=== PATIENT | male | born 1985 | race Hispanic/Latino ===

== ENCOUNTER 2018-06-23 18:29 | Inpatient (IN) | payer OTHER ==
[2018-06-23 19:59] LABS: HEMATOCRIT 47.7 % (42.0-52.0); HEMOGLOBIN 15.4 g/dl (13.5-17.5); MEAN CORPUSCULAR HEMOGLOBIN 29.9 pg (27.0-33.0); MEAN CORPUSCULAR HGB CONC 32.3 g/dl (32.0-36.5); MEAN CORPUSCULAR VOLUME 92.6 fl (80.0-96.0); PLATELET COUNT, AUTOMATED 240 10^3/uL (150-450); RED BLOOD COUNT 5.15 10^6/uL (4.30-6.10); RED CELL DISTRIBUTION WIDTH 12.1 % (11.5-14.5); WHITE BLOOD COUNT 10.5 10^3/uL (4.0-10.0)
[2018-06-23 20:20] LABS: ALKALINE PHOSPHATASE 96 U/L (45-117); ALT/SGPT 25 U/L (12-78); ANION GAP 6 MEQ/L (8-16); AST/SGOT 13 U/L (7-37); BLOOD UREA NITROGEN 16 MG/DL (7-18); CALCIUM LEVEL 8.3 MG/DL (8.5-10.1); CARBON DIOXIDE LEVEL 29 MEQ/L (21-32); CHLORIDE LEVEL 105 MEQ/L (98-107); CREATININE FOR GFR 1.13 MG/DL (0.70-1.30); GLOMERULAR FILTRATION RATE > 60.0 (>60); GLUCOSE, FASTING 96 MG/DL (70-100); POTASSIUM SERUM 4.1 MEQ/L (3.5-5.1); SODIUM LEVEL 140 MEQ/L (136-145)
[2018-06-23 20:21] LABS: ACETAMINOPHEN LEVEL < 2.0 UG/ML (10.0-30.0); ALBUMIN 3.9 GM/DL (3.2-5.2); ALBUMIN/GLOBULIN RATIO 0.98 (1.00-1.93); BILIRUBIN,DIRECT 0.1 MG/DL (0.0-0.2); BILIRUBIN,TOTAL 0.4 MG/DL (0.2-1.0); ETHYL ALCOHOL (ETHANOL) 0.004 % (0.000-0.010); SALICYLATE LEVEL < 1.7 MG/DL (5.0-30.0); TOTAL PROTEIN 7.9 GM/DL (6.4-8.2)
[2018-06-23 20:26] LABS: AMPHETAMINES LEVEL URINE NEGATIVE (NEGATIVE); BARBITURATES URINE NEGATIVE (NEGATIVE); BENZODIAZEPINES URINE NEGATIVE (NEGATIVE); CANNABINOIDS URINE NEGATIVE (NEGATIVE); COCAINE METABOLITE URINE NEGATIVE (NEGATIVE); METHADONE URINE NEGATIVE (NEGATIVE); OPIATES URINE NEGATIVE (NEGATIVE); PHENCYCLIDINE URINE NEGATIVE (NEGATIVE)
[2018-06-23] MEDS ORDERED: traZODone 50 MG TAB PO (22:15)
[2018-06-23] MEDS ORDERED: ACETAMINOPHEN TAB 650MG DOSE (2X325MG) PO (22:15)
[2018-06-23] MEDS ORDERED: MOM 30ML SUSPENSION UDC PO (22:15)
[2018-06-23] MEDS ORDERED: MAALOX 30 ML SUSP *UDC PO (22:15)
[2018-06-24] MEDS: SERTRALINE HCL 50 MG TAB PO (15:21)
[2018-06-25] MEDS: SERTRALINE HCL 50 MG TAB PO (08:59)
[2018-06-26] MEDS: SERTRALINE HCL 50 MG TAB PO (08:24)
[2018-06-27] MEDS: SERTRALINE HCL 50 MG TAB PO (08:24)
[2018-06-28] MEDS: SERTRALINE HCL 50 MG TAB PO (09:11)
[2018-06-29] MEDS: SERTRALINE HCL 50 MG TAB PO (09:40)
== END 2018-06-29 12:30 | disposition home or self-care (01) | DRG 881 ==
LOC: M PSY 06-24 02:14 → M ED 18:29 → M ED INP 22:07
DX: F32.9 Major depressive disorder, single episode, unspecified (principal); F41.9 Anxiety disorder, unspecified

== ENCOUNTER 2018-07-05 12:38 | Emergency (ER) | payer OTHER ==
[2018-07-05] MEDS: NS 1,000 ML IV (13:30)
[2018-07-05] MEDS: ASPIRIN 81 MG CHEW TABLET PO (13:30)
[2018-07-05 14:09] LABS: BASO # 0.1 10^3/uL (0.0-0.2); BASO % 0.6 % (0.0-1.0); EOS # 0.3 10^3/uL (0.0-0.50); EOS % 3.4 % (0.0-3.0); HEMATOCRIT 45.3 % (42.0-52.0); HEMOGLOBIN 14.6 g/dl (13.5-17.5); IMMATURE GRANULOCYTE % 0.2 % (0-3.0); LYMPH % 24.7 % (24.0-44.0); MEAN CORPUSCULAR HEMOGLOBIN 29.9 pg (27.0-33.0); MEAN CORPUSCULAR HGB CONC 32.2 g/dl (32.0-36.5); MEAN CORPUSCULAR VOLUME 92.6 fl (80.0-96.0); MONO # 0.5 10^3/uL (0.0-0.8); MONO % 6.1 % (0.0-5.0); NEUTROPHILS # 5.3 10^3/uL (1.8-7.7); PLATELET COUNT, AUTOMATED 237 10^3/uL (150-450); RED BLOOD COUNT 4.89 10^6/uL (4.30-6.10); RED CELL DISTRIBUTION WIDTH 12.4 % (11.5-14.5); WHITE BLOOD COUNT 8.2 10^3/uL (4.0-10.0)
[2018-07-05 14:20] LABS: INR 0.95; PROTHROMBIN TIME 12.8 SECONDS (12.1-14.4)
[2018-07-05 14:26] LABS: AMPHETAMINES LEVEL URINE NEGATIVE (NEGATIVE); BARBITURATES URINE NEGATIVE (NEGATIVE); BENZODIAZEPINES URINE NEGATIVE (NEGATIVE); CANNABINOIDS URINE NEGATIVE (NEGATIVE); COCAINE METABOLITE URINE NEGATIVE (NEGATIVE); METHADONE URINE NEGATIVE (NEGATIVE); OPIATES URINE NEGATIVE (NEGATIVE); PHENCYCLIDINE URINE NEGATIVE (NEGATIVE)
[2018-07-05 14:56] LABS: ALBUMIN 3.9 GM/DL (3.2-5.2); ALBUMIN/GLOBULIN RATIO 1.18 (1.00-1.93); ALKALINE PHOSPHATASE 80 U/L (45-117); ALT/SGPT 21 U/L (12-78); ANION GAP 5 MEQ/L (8-16); AST/SGOT 13 U/L (7-37); BILIRUBIN,DIRECT 0.1 MG/DL (0.0-0.2); BILIRUBIN,TOTAL 0.3 MG/DL (0.2-1.0); BLOOD UREA NITROGEN 16 MG/DL (7-18); CALCIUM LEVEL 8.8 MG/DL (8.5-10.1); CARBON DIOXIDE LEVEL 28 MEQ/L (21-32); CHLORIDE LEVEL 105 MEQ/L (98-107); CPK CREATINE PHOSPHOKINASE 102 U/L (39-308); CREATININE FOR GFR 0.94 MG/DL (0.70-1.30); FREE THYROXINE INDEX 2.4 % (1.4-3.8); GLOMERULAR FILTRATION RATE > 60.0 (>60); GLUCOSE, FASTING 93 MG/DL (70-100); MAGNESIUM LEVEL 2.2 MG/DL (1.8-2.4); MB/CK RELATIVE INDEX 1.08 (< OR =4); SODIUM LEVEL 138 MEQ/L (136-145); T UPTAKE 33 % (33-40); THYROXINE (T4) 7.3 UG/DL (4.5-12.0); TOTAL PROTEIN 7.2 GM/DL (6.4-8.2); TROPONIN I < 0.02 NG/ML (< 0.10)
== END 2018-07-05 15:29 | disposition home or self-care (01) ==
LOC: M ED 12:38
DX: R00.2 Palpitations (principal); R00.1 Bradycardia, unspecified; Z82.49 Family history of ischemic heart disease and other diseases of the circulatory system
CPT/HCPCS: 71046

== ENCOUNTER 2018-07-07 10:34 | Inpatient (IN) | payer OTHER ==
[2018-07-07 11:34] LABS: HEMATOCRIT 45.7 % (42.0-52.0); HEMOGLOBIN 14.9 g/dl (13.5-17.5); MEAN CORPUSCULAR HEMOGLOBIN 29.7 pg (27.0-33.0); MEAN CORPUSCULAR HGB CONC 32.6 g/dl (32.0-36.5); PLATELET COUNT, AUTOMATED 235 10^3/uL (150-450); RED BLOOD COUNT 5.02 10^6/uL (4.30-6.10); RED CELL DISTRIBUTION WIDTH 12.5 % (11.5-14.5)
[2018-07-07 11:58] LABS: ACETAMINOPHEN LEVEL < 2.0 UG/ML (10.0-30.0); ALBUMIN 3.7 GM/DL (3.2-5.2); ALBUMIN/GLOBULIN RATIO 0.97 (1.00-1.93); ALKALINE PHOSPHATASE 90 U/L (45-117); ALT/SGPT 22 U/L (12-78); ANION GAP 7 MEQ/L (8-16); AST/SGOT 13 U/L (7-37); BILIRUBIN,DIRECT < 0.1 MG/DL (0.0-0.2); BILIRUBIN,TOTAL 0.4 MG/DL (0.2-1.0); BLOOD UREA NITROGEN 19 MG/DL (7-18); CALCIUM LEVEL 8.8 MG/DL (8.5-10.1); CARBON DIOXIDE LEVEL 29 MEQ/L (21-32); CHLORIDE LEVEL 105 MEQ/L (98-107); CREATININE FOR GFR 1.15 MG/DL (0.70-1.30); ETHYL ALCOHOL (ETHANOL) < 0.003 % (0.000-0.010); GLOMERULAR FILTRATION RATE > 60.0 (>60); GLUCOSE, FASTING 63 MG/DL (70-100); SALICYLATE LEVEL < 1.7 MG/DL (5.0-30.0); SODIUM LEVEL 141 MEQ/L (136-145); TOTAL PROTEIN 7.5 GM/DL (6.4-8.2)
[2018-07-07 14:34] LABS: AMPHETAMINES LEVEL URINE NEGATIVE (NEGATIVE); BARBITURATES URINE NEGATIVE (NEGATIVE); BENZODIAZEPINES URINE NEGATIVE (NEGATIVE); CANNABINOIDS URINE NEGATIVE (NEGATIVE); COCAINE METABOLITE URINE NEGATIVE (NEGATIVE); METHADONE URINE NEGATIVE (NEGATIVE); OPIATES URINE NEGATIVE (NEGATIVE); PHENCYCLIDINE URINE NEGATIVE (NEGATIVE)
[2018-07-07] MEDS ORDERED: MOM 30ML SUSPENSION UDC PO (15:00)
[2018-07-07] MEDS ORDERED: ACETAMINOPHEN TAB 650MG DOSE (2X325MG) PO (15:00)
[2018-07-07] MEDS ORDERED: MAALOX 30 ML SUSP *UDC PO (15:00)
[2018-07-07] MEDS ORDERED: hydrOXYzine 50 MG TAB PO (15:00)
[2018-07-08] MEDS: SERTRALINE HCL 50 MG TAB PO (09:47)
[2018-07-09] MEDS: ESCITALOPRAM OXALATE 5MG TABLET (LEXAPRO) PO (08:27)
[2018-07-10] MEDS: ESCITALOPRAM OXALATE 10 MG TAB (LEXAPRO) PO (08:58)
[2018-07-11] MEDS: ESCITALOPRAM OXALATE 5MG TABLET (LEXAPRO) PO (09:10)
[2018-07-12] MEDS: ESCITALOPRAM OXALATE 5MG TABLET (LEXAPRO) PO (09:41)
[2018-07-12] MEDS: traZODone 50 MG TAB PO (21:21)
[2018-07-13] MEDS: ESCITALOPRAM OXALATE 10 MG TAB (LEXAPRO) PO (09:00)
[2018-07-13] MEDS: traZODone 50 MG TAB PO (21:42)
[2018-07-14] MEDS: ESCITALOPRAM OXALATE 10 MG TAB (LEXAPRO) PO (08:31)
[2018-07-15] MEDS: ESCITALOPRAM OXALATE 10 MG TAB (LEXAPRO) PO (09:23)
[2018-07-15] MEDS: traZODone 50 MG TAB PO (22:04)
== END 2018-07-16 07:11 | DRG 881 ==
LOC: M PSY 07-12 18:41 → M ED 10:34 → M ED INP 14:46 → M PSY 15:40
PROVIDERS: Psychiatry & Neurology Psychiatry
DX: F32.9 Major depressive disorder, single episode, unspecified (principal); F41.9 Anxiety disorder, unspecified; Z79.899 Other long term (current) drug therapy

== ENCOUNTER 2018-11-02 10:21 | Inpatient (IN) | payer OTHER ==
[~2018-11-02] VITALS: Ht 172.7 cm; Wt 108.2 kg
[~2018-11-02 10:21] MED LIST: ESCI10TA2 PO; HYDRO50TAB PO; SERT50TA PO; TRAZO50TA PO; ZOLO50TA PO
[2018-11-02] MEDS ORDERED: MIRT-15 PO (10:34)
[2018-11-02] MEDS ORDERED: ABIL1TAB12 PO (10:34)
[2018-11-02 10:55] LABS: HEMATOCRIT 46.6 % (42.0-52.0); HEMOGLOBIN 15.2 g/dl (13.5-17.5); MEAN CORPUSCULAR HEMOGLOBIN 30.2 pg (27.0-33.0); MEAN CORPUSCULAR HGB CONC 32.6 g/dl (32.0-36.5); MEAN CORPUSCULAR VOLUME 92.5 fl (80.0-96.0); PLATELET COUNT, AUTOMATED 225 10^3/uL (150-450); RED BLOOD COUNT 5.04 10^6/uL (4.30-6.10); WHITE BLOOD COUNT 6.8 10^3/uL (4.0-10.0)
[2018-11-02 11:05] LABS: AMPHETAMINES LEVEL URINE NEGATIVE (NEGATIVE); BARBITURATES URINE NEGATIVE (NEGATIVE); BENZODIAZEPINES URINE NEGATIVE (NEGATIVE); CANNABINOIDS URINE NEGATIVE (NEGATIVE); COCAINE METABOLITE URINE NEGATIVE (NEGATIVE); METHADONE URINE NEGATIVE (NEGATIVE); OPIATES URINE NEGATIVE (NEGATIVE); PHENCYCLIDINE URINE NEGATIVE (NEGATIVE)
[2018-11-02 11:33] LABS: ALBUMIN 3.8 GM/DL (3.2-5.2); ALT/SGPT 20 U/L (12-78); BILIRUBIN,DIRECT 0.1 MG/DL (0.0-0.2); BILIRUBIN,TOTAL 0.4 MG/DL (0.2-1.0); BLOOD UREA NITROGEN 14 MG/DL (7-18); CALCIUM LEVEL 8.7 MG/DL (8.5-10.1); CARBON DIOXIDE LEVEL 30 MEQ/L (21-32); CHLORIDE LEVEL 105 MEQ/L (98-107); CREATININE FOR GFR 1.12 MG/DL (0.70-1.30); GLOMERULAR FILTRATION RATE > 60.0 (>60); GLUCOSE, FASTING 51 MG/DL (70-100); POTASSIUM SERUM 4.1 MEQ/L (3.5-5.1); SALICYLATE LEVEL < 1.7 MG/DL (5.0-30.0); SODIUM LEVEL 140 MEQ/L (136-145); TOTAL PROTEIN 7.4 GM/DL (6.4-8.2)
[2018-11-02 11:34] LABS: ACETAMINOPHEN LEVEL < 2.0 UG/ML (10.0-30.0); ETHYL ALCOHOL (ETHANOL) < 0.003 % (0.000-0.010)
[2018-11-02] MEDS ORDERED: traZODone 50 MG TAB PO PRN (12:30)
[2018-11-02] MEDS ORDERED: MOM 30ML SUSPENSION UDC PO PRN (12:30)
[2018-11-02] MEDS ORDERED: ACETAMINOPHEN TAB 650MG DOSE (2X325MG) PO PRN (12:30)
[2018-11-02] MEDS ORDERED: MAALOX 30 ML SUSP *UDC PO PRN (12:30)
[2018-11-02] MEDS ORDERED: MIRT15TA3 PO (13:02)
[2018-11-02] MEDS ORDERED: MELA5TAB17 PO (13:02)
[2018-11-02] MEDS ORDERED: ARIP1TAB PO (13:42)
[2018-11-02] MEDS ORDERED: MELA3TAB PO (13:42)
[2018-11-02 13:56] VITALS: BP 119/71
--- NOTE | 2018-11-02 14:23 | HPEPDOC ---
[facility] Medical History & Physical Date of Admission Nov 02, 2018 History and Physical PCP: [facility] ATTENDING: Dr. Isis Quinn HPI: 33yoM admitted to [facility] for depressive disorder, being medically examined today. No acute medical complaints today. Denies any fevers, chills, weakness, fatigue, LYN, CP, SOB, cough, palpitations, abdominal pain, N/V/D or changes in bowel or bladder habits. PMHx: anxiety depression insomnia H/O SI/SA x 3 chronic LBP PSHX: denies SOCHX: Resides in: 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 ROS: As noted in HPI, otherwise 11pt ROS of systems reviewed and unremarkable. PE: GEN: 33yoM, appears stated age. Well-nourished, well developed. No acute distress. Alert and oriented x 3. Pleasant, interactive. HEENT: Normocephalic, atraumatic. Pupils are equal, round, and reactive to light. Extraocular movements are intact. No nystagmus appreciated. Sclera are nonicteric. Conjunctiva without injection. Nose midline. Nasal turbinates without bogginess. EACs both patent BL. TMs both visualized and casillas with good cone of light, no bulging or erythema. No facial asymmetry. Moist mucous membranes. Dentition fair. Pharynx pink and moist, no cobblestoning. Neck suppl e, trachea midline. No lymphadenopathy or thyromegaly appreciated. CHEST: Regular rate and rhythm, +S1, +S2 LUNGS: Clear to auscultation bilaterally. No wheezes, rales, or rhonchi. Breathing appears symmetric and easy. Patient is speaking in full sentences. No accessory muscle use. ABD: Round, soft, non-tender, non-distended. +Bowel sounds throughout. No rebound or guarding. No costovertebral angle tenderness. EXT: Pulses 2+ bilaterally dorsalis pedis and radial. No lower extremity edema appreciated. SKIN: [place], dry, warm. Capillary refill <2sec. No rashes. NEURO: Alert and oriented x 3. Cranial nerves III-XII are intact. No focal deficits appreciated. EKG: pending A&P: 33yoM admitted to [facility] for depressive disorder 1. Psych. Plan per Psychiatry. Obtain baseline EKG to assure the safety of psychiatric medications as they can prolong the QT interval. 2. Chronic LBP. Pt states has been controlled. Continue Tylenol 650 mg Q6 hr prn. 3. Follow up with PCP on discharge. 4. Staff member Ed present throughout exam. Vital Signs Vital Signs Date Time Temp Pulse Resp B/P (MAP) Pulse Ox O2 Delivery O2 Flow Rate FiO2 11/02/18 13:34 98.0 56 18 119/71 (87) 98 Laboratory Data Labs 24H Laboratory Tests 2 11/02/18 10:30: Nucleated Red Blood Cells % (auto) 0.0, Anion Gap 5L, Glomerular Filtration Rate > 60.0, Calcium Level 8.7, Aspartate Amino Transf (AST/SGOT) 11, Alanine Amino transferase (ALT/SGPT) 20, Alkaline Phosphatase 78, Total Bilirubin 0.4, Direct Bilirubin 0.1, Total Protein 7.4, Albumin 3.8, Albumin/Globulin Ratio 1.06, Thyroid Stimulating Hormone (TSH) 1.340, Salicylates Level < 1.7L, Urine Amphetamines Screen NEGATIVE, Urine Benzodiazepines Screen NEGATIVE, Urine Opiates Screen NEGATIVE, Urine Methadone Screen NEGATIVE, Acetaminophen Level < 2.0L, Urine Barbiturates Screen NEGATIVE, Urine Phencyclidine Screen NEGATIVE, Urine Cocaine Metabolite Screen NEGATIVE, Urine Cannabinoids Screen NEGATIVE, Ethyl Alcohol Level < 0.003 CBC/BMP Laboratory Tests 11/02/18 10:30 Red Blood Count 5.04, Mean Corpuscular Volume 92.5, Mean Corpuscular Hemoglobin 30.2, Mean Corpuscular Hemoglobin Concent 32.6, Red Cell Distribution Width 12.3 Home Medications Scheduled Aripiprazole (Aripiprazole) 10 Mg Tab, 10 MG PO QHS Melatonin (Melatonin) 3 Mg Tab, 3 MG PO QHS Mirtazapine (Mirtazapine) 15 Mg Tab, 15 MG PO QHS Allergies Coded Allergies: No Known Allergies (Unverified , 11/02/18) Halle Mohan Nov 02, 2018 14:23
[2018-11-02 18:06] VITALS: BP 119/55
[2018-11-03 06:39] VITALS: BP 112/59
--- NOTE | 2018-11-03 13:30 | MHHPEPDOC ---
[facility] History & Physical History and Physical DATE OF ADMISSION: Nov 02, 2018 at 12:28 LEGAL STATUS AT ADMISSION: 9.39 CHIEF COMPLAINT: SI with thoughts of driving car off bridge into [place] or jumping off bridge into river. HISTORY: according to ED report: "Pt. reports he has been feeling overwhelmed l ately, is being med-boarded out of due to MH issues. He reports that he has been having negative thoughts for several days and those thoughts turned to SI this morning, reporting having thoughts of killing himself by [place] or jumpng off bridge [place] the river. He states he went to scheduled appt at today and told therapist of . Pt. states he has no hope in the future. He does state he is , has a good relationship with his who is currently in [place]( has visited fruequently). He states he is also from [place] and will return there after d/c. He reports three past suicide attempts/gestures. He denies MH history prior to joining the ." PSYCHIATRIC REVIEW OF SYSTEMS: Affective: suicidal thoughts, hopelessness, depressed mood, anhedonia, Anxiety: high anxiety levels Trauma: Psychosis: he denies thought delusions, denies auditory, visual, tactile/somatic hallucinations Personality: Past Psychiatric History Previous Psychiatric Diagnosis: Major Depressive Disorder and anxiety disorder. panic attacks Previous Psychiatric Admissions: he has been admitted several times at [facility] for anxiety, depression, panic attacks Suicide Attempts: He says that last year in May-June, he attempted before to commit suicide by CO2 intoxication (ran car in closed garage) but stopped himself by looking a picture of his . He was sent to [facility], about 29 days later, once he had a second attempt, by cutting his wrists and the third one was when he was in [place], [place], he was banging his head against the leon Psychiatric Follow-up: none yet, will have [facility] Psychiatric medications: Abilify, he has taken Cogentin but it was recently discontinued, melatonin and a sleep medication Past Medical History Medical Problems: Lower back pain and pain in his feet, since he has been in the [employer] this has worsened because he has to stand up for long periods of time, he had nose bleeding before (last time, yesterday). Overweight. Head Injury: Denies Seizures: Denies Hospitalizations: Yes at [facility] and at [facility] in [place] Surgeries: No Family Medical/Psychiatric HX Medical Problems: He says his brother told him that he is ill, he doesn't know for sure if he had Crohn's disease. Psychiatric Disorders: Denies Addiction: Denies Suicide Attemps/Completions: Denies Addiction History denies Social History Childhood: born and raised in [place], good childhood, he has 1 brother who lives in [place], his parents live in [place]. 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 Social Support: Legal: denies Marital: , no kids Mental Status Examination Mental Status Examination General Appearance: well groomed, appears stated age, hospital scrubs/clothing, overweight Build: average Demeanor: pleasant, cooperative Eye Contact: good Activity: anxious Behavior: cooperative Speech: clear, pressured, normal volume, reg/rate,rhythm,volume Mood: depressed, anxious Mood "I feel better today but yesterday I felt overwhelmed and that was what triggered the suicidal thoughts" Affect: appropriate, full, reactive Thought Process: logical/linear, depressed, anxious, intact Thought Content (Delusions): none reported, denies SI, HI, AVH Thought Content (Other): none reported, appropriate Thought Content (Aggressive): none reported Perception (Hallucinations): none reported Perception (Other): none reported Cognition (Impairment of): none reported Cognition(Intelligence Est.): average Oriented: Awake, Alert, Oriented times three Insight: poor Judgment: Poor Psychosis: Denies Diagnoses Depression Unspecified Anxiety D/O unspecified Assement/Plan Assessment Initial Treatment Plan 1. Patient was admitted on a 9.39 status. 2. Complete history was obtained. 3. With patients permission, family will be contacted and database will be expanded. 4. Patients medication regimen will be reviewed and changed accordingly. 5. Patient will be provided with protected environment. 6. Patient will be treated with individual, group, and milieu therapies. 7. Patient will receive supportive psych-education. 8. Discharge planning will commence immediately. 9. Outpatient follow-up treatment will be strongly recommended. 10. The initial treatment plan will focus initially on: * Depression. * Risk for suicide. * Substance abuse. 11. zoloft 50mg daily for mood, trazodone 50mg qhs prn insomnia ESTIMATED LENGTH OF STAY: 5-7 DAYS. TIME SPENT COUNSELING AND COORDINATING INITIAL CARE: 60 minutes. Vital Signs Vital Signs Vital Signs Vital Signs Date Time Temp Pulse Resp B/P (MAP) Pulse Ox O2 Delivery O2 Flow Rate FiO2 11/03/18 06:39 98.2 57 14 112/59 (76) 11/02/18 13:56 98 Medications Scheduled Aripiprazole (Aripiprazole) 10 Mg Tab, 10 MG PO QHS, (Reported) Melatonin (Melatonin) 3 Mg Tab, 3 MG PO QHS, (Reported) Mirtazapine (Mirtazapine) 15 Mg Tab, 15 MG PO QHS, (Reported) Allergies Coded Allergies: No Known Allergies (Unverified , 11/02/18) BEVERLY CABALLERO MD Nov 03, 2018 12:02
[2018-11-03 18:38] VITALS: BP 117/64
[2018-11-03] MEDS: ARIPiprazole 10 MG TAB PO SCH (22:05)
[2018-11-03] MEDS: RAMELTEON 8 MG TAB (ROZEREM) PO SCH (22:05)
[2018-11-03] MEDS: MIRTAZAPINE 15 MG TAB PO SCH (22:05)
--- NOTE | 2018-11-03 22:07 | ECGEPIP ---
Stationary ECG Study [facility] Test Date: 2018-11-03 Pat Name: CHARLETTE REYNOLDS Department: Room: [place] [address] Gender: M Coater Helper: YOUNG : 1985 Requested By: Halle Mohan Order Number: [id number] Reading MD: Milan Blackmon Measurements Intervals [place] Rate: 49 P: 33 ID: [id number] QRS: 85 QRSD: 108 T: 38 QT: 422 QTc: 382 Interpretive Statements SINUS BRADYCARDIA Otherwise normal Electronically Signed On 11-03-2018 22:07:24 EST by Milan Blackmon
[2018-11-04 06:21] VITALS: BP 105/52
--- NOTE | 2018-11-04 09:35 | MHIPNPDOC ---
[facility] Progress Note Progress Note DATE OF SERVICE: 11/04/18 HISTORY: Per Dr. Harrington: "According to ED report: "Pt. reports he has been feeling overwhelmed lately, is being med-boarded out of due to MH issues. He reports that he has been having negative thoughts for several days and those thoughts turned to SI this morning, reporting having thoughts of killing himself [place] or jumping off bridge [place] the river. He states he went to scheduled appt at today and told therapist of SI. Pt. states he has no hope in the future. He does state he is , has a good relationship with his who is currently in [place]( has visited frequently). He states he is also from [place] and will return there after d/c. He reports three past suicide attempts/gestures. He denies MH history prior to joining the ." VITAL SIGNS: See below. NEW TEST RESULTS: See below. CURRENT MEDICATIONS: See below. MENTAL STATUS EXAMINATION: General Appearance: well groomed, appears stated age, hospital scrubs/clothing, overweight Build: average Demeanor: pleasant, cooperative Eye Contact: good Activity: less anxious Behavior: cooperative Speech: clear, pressured, normal volume, reg/rate,rhythm,volume Mood: less depressed, less anxious Mood "ok" Affect: appropriate, full, reactive Thought Process: logical/linear, depressed, anxious, intact Thought Content (Delusions): none reported, denies SI, HI, AVH Thought Content (Other): none reported, appropriate Thought Content (Aggressive): none reported Perception (Hallucinations): none reported Perception (Other): none reported Cognition (Impairment of): none reported Cognition(Intelligence Est.): average Oriented: Awake, Alert, Oriented times three Insight: poor Judgment: Poor Psychosis: Denies DIAGNOSES: Depression Unspecified Anxiety D/O unspecified ASSESSMENT:Pt seen and states that his mood is better. States he slept well last night. Feels he is tolerating his medications and they're beneficial. States abilify is especially beneficial from him. States he's looking forward to going home soon due to feeling better. He is attending groups and finding them helpful. He denies SI/HI, hallucinations, delusions. Pt feels safe here. MANAGEMENT PLAN: per dr. Harrington. Medications: remeron 15mg qhs trazodone 50mg qhs prn insomnia Abilify 10mg qhs TIME SPENT: 30 minutes. Vital Signs Vital Signs Date Time Temp Pulse Resp B/P (MAP) Pulse Ox O2 Delivery O2 Flow Rate FiO2 11/04/18 06:21 97.6 55 18 105/52 (69) 11/02/18 13:56 98 Current Medications Current Medications Acetaminophen (Tylenol Tab) 650 mg Q6HP PRN PO HEADACHE or DISCOMFORT; Start 11/02/18 at 12:30 Al Hydrox/Mg Hydrox/Simethicone (Mylanta) 30 ml Q4HP PRN PO HEARTBURN/INDIGESTION; Start 11/02/18 at 12:30 Aripiprazole (AbiLIFY) 10 mg QHS PO Last administered on 11/03/18at 22:05; Start 11/03/18 at 21:00 Home Med (Med Rec Complete!) ASDIRECTED XX ; Start 11/02/18 at 13:45; Stop 11/02/18 at 13:47; Status DC Magnesium Hydroxide (Milk Of Magnesia) 30 ml DAILYPRN PRN PO CONSTIPATION; Start 11/02/18 at 12:30 Mirtazapine (Remeron) 15 mg QHS PO Last administered on 11/03/18at 22:05; Start 11/03/18 at 21:00 Ramelteon (Rozerem) 4 mg QHS PO Last administered on 11/03/18at 22:05; Start 11/03/18 at 21:00 Trazodone HCl (Desyrel) 50 mg QHSP PRN PO INSOMNIA; Start 11/02/18 at 12:30 Allergies Coded Allergies: No Known Allergies (Unverified , 11/02/18) AUNDREA JAMESON DO Nov 04, 2018 9:35 am
[2018-11-04 18:00] VITALS: BP 131/62
[2018-11-04] MEDS: ARIPiprazole 10 MG TAB PO SCH (21:00)
[2018-11-04] MEDS: RAMELTEON 8 MG TAB (ROZEREM) PO SCH (22:45)
[2018-11-04] MEDS: MIRTAZAPINE 15 MG TAB PO SCH (22:45)
[2018-11-05 06:01] VITALS: BP 105/53
[2018-11-05 18:00] VITALS: BP 131/65
[2018-11-05] MEDS: MIRTAZAPINE 15 MG TAB PO SCH (22:45)
[2018-11-05] MEDS: RAMELTEON 8 MG TAB (ROZEREM) PO SCH (22:46)
[2018-11-05] MEDS: ARIPiprazole 10 MG TAB PO SCH (22:46)
[2018-11-06 06:18] VITALS: BP 93/47
--- NOTE | 2018-11-06 17:46 | MHIPNPDOC ---
[facility] Progress Note Progress Note DATE OF SERVICE: 11/05/18 HISTORY: CHIEF COMPLAINT: SI with thoughts of driving car off bridge into [place] or jumping off bridge into river. HISTORY: according to ED report: "Pt. reports he has been feeling overwhelmed lately, is being med-boarded out of due to MH issues. He reports that he has been having negative thoughts for several days and those thoughts turned to SI this morning, reporting having thoughts of killing himself by [place] or jumpng off bridge into the river. He states he went to scheduled appt at today and told therapist of SI. Pt. states he has no hope in the future. He does state he is , has a good relationship with his who is currently in [place]( has visited fruequently). He states he is also from [place] and will return there after d/c. He reports three past suicide attempts/gestures. He denies MH history prior to joining the ." VITAL SIGNS: See below. NEW TEST RESULTS: See below CURRENT MEDICATIONS: See below. MENTAL STATUS EXAMINATION: Patient is a 33-year old male, who is alert, cooperative, dressed in hospital clothes. Speech: Is normal in rate, tone and volume. Language skills are good. Thought processes including: intact, linear and coherent. Thought content: focused on being discharged, he is goal orientated, he wants it out of the . Denies SI/HI, thought delusions Description of abnormal or psychotic thoughts: Denies AV hallucinations, having suicidal/homicidal thoughts. Denies AV hallucinations Judgment: Improving Insight: Improving Orientation: x 3 Recent and remote memory: intact Attention span and concentration: good. Language: normal. Fund of knowledge: average. Mood: brighter, euthymic. Affect: congruent with mood. DIAGNOSES: 1. Other specified depressive disorder 2. SHANNAN. 3. Adjustment disorder with anxious/depressed mood. ASSESSMENT: Patient is showing improvement, he says that he is not suicidal, has felt safe and calm since he has been in here. he says his main stressor is being in the [employer] and although they have been helpful and they have offered their support, all what he wants is out of there and go back to [place]. MANAGEMENT PLAN: will continue with current treatment TIME SPENT: 30 minutes. Vital Signs Vital Signs Date Time Temp Pulse Resp B/P (MAP) Pulse Ox O2 Delivery O2 Flow Rate FiO2 11/06/18 06:18 96.9 50 14 93/47 (62) 11/02/18 13:56 98 Current Medications Current Medications Acetaminophen (Tylenol Tab) 650 mg Q6HP PRN PO HEADACHE or DISCOMFORT; Start 11/02/18 at 12:30 Al Hydrox/Mg Hydrox/Simethicone (Mylanta) 30 ml Q4HP PRN PO HEARTBURN/INDIGESTION; Start 11/02/18 at 12:30 Aripiprazole (AbiLIFY) 10 mg QHS PO Last administered on 11/05/18at 22:46; Start 11/03/18 at 21:00 Home Med (Med Rec Complete!) ASDIRECTED XX ; Start 11/02/18 at 13:45; Stop 11/02/18 at 13:47; Status DC Magnesium Hydroxide (Milk Of Magnesia) 30 ml DAILYPRN PRN PO CONSTIPATION; Start 11/02/18 at 12:30 Mirtazapine (Remeron) 15 mg QHS PO Last administered on 11/05/18at 22:45; Start 11/03/18 at 21:00 Ramelteon (Rozerem) 4 mg QHS PO Last administered on 11/05/18at 22:46; Start 11/03/18 at 21:00 Trazodone HCl (Desyrel) 50 mg QHSP PRN PO INSOMNIA; Start 11/02/18 at 12:30 Allergies Coded Allergies: No Known Allergies (Unverified , 11/02/18) BEVERLY CABALLERO MD Nov 06, 2018 17:44
--- NOTE | 2018-11-06 17:48 | MHIPNPDOC ---
[facility] Progress Note Progress Note DATE OF SERVICE: 11/06/18 HISTORY: CHIEF COMPLAINT: SI with thoughts of driving car off bridge into [place] or jumping off bridge into river. HISTORY: according to ED report: "Pt. reports he has been feeling overwhelmed lately, is being med-boarded out of due to MH issues. He reports that he has been having negative thoughts for several days and those thoughts turned to SI this morning, reporting having thoughts of killing himself by [place] or jumpng off bridge into the river. He states he went to scheduled appt at today and told therapist of SI. Pt. states he has no hope in the future. He does state he is , has a good relationship with his who is currently in [place]( has visited fruequently). He states he is also from [place] and will return there after d/c. He reports three past suicide attempts/gestures. He denies MH history prior to joining the ." VITAL SIGNS: See below. NEW TEST RESULTS: See below CURRENT MEDICATIONS: See below. MENTAL STATUS EXAMINATION: Patient is a 33-year old male, who is alert, cooperative, dressed in hospital clothes. Speech: Is normal in rate, tone and volume. Language skills are good. Thought processes including: intact, linear and coherent. Thought content: focused on being discharged, he is goal orientated, he wants it out of the . Denies SI/HI, thought delusions Description of abnormal or psychotic thoughts: Denies AV hallucinations, having suicidal/homicidal thoughts. Denies AV hallucinations Judgment: Improving Insight: Improving Orientation: x 3 Recent and remote memory: intact Attention span and concentration: good. Language: normal. Fund of knowledge: average. Mood: brighter, euthymic. Affect: congruent with mood. DIAGNOSES: 1. Other specified depressive disorder 2. SHANNAN. 3. Adjustment disorder with anxious/depressed mood. ASSESSMENT: There's no major changes in his MSE. he is having a good response to medication, he is attending some groups and says he is feeling better, he bryant SI/HI. MANAGEMENT PLAN: will continue with current treatment Vital Signs Vital Signs Date Time Temp Pulse Resp B/P (MAP) Pulse Ox O2 Delivery O2 Flow Rate FiO2 11/06/18 06:18 96.9 50 14 93/47 (62) 11/02/18 13:56 98 Current Medications Current Medications Acetaminophen (Tylenol Tab) 650 mg Q6HP PRN PO HEADACHE or DISCOMFORT; Start 11/02/18 at 12:30 Al Hydrox/Mg Hydrox/Simethicone (Mylanta) 30 ml Q4HP PRN PO HEARTBURN/INDIGESTION; Start 11/02/18 at 12:30 Aripiprazole (AbiLIFY) 10 mg QHS PO Last administered on 11/05/18at 22:46; Start 11/03/18 at 21:00 Home Med (Med Rec Complete!) ASDIRECTED XX ; Start 11/02/18 at 13:45; Stop 11/02/18 at 13:47; Status DC Magnesium Hydroxide (Milk Of Magnesia) 30 ml DAILYPRN PRN PO CONSTIPATION; Start 11/02/18 at 12:30 Mirtazapine (Remeron) 15 mg QHS PO Last administered on 11/05/18at 22:45; Start 11/03/18 at 21:00 Ramelteon (Rozerem) 4 mg QHS PO Last administered on 11/05/18at 22:46; Start 11/03/18 at 21:00 Trazodone HCl (Desyrel) 50 mg QHSP PRN PO INSOMNIA; Start 11/02/18 at 12:30 Allergies Coded Allergies: No Known Allergies (Unverified , 11/02/18) BEVERLY CABALLERO MD Nov 06, 2018 17:48
[2018-11-06 18:03] VITALS: BP 117/62
[2018-11-06] MEDS: RAMELTEON 8 MG TAB (ROZEREM) PO SCH (20:02)
[2018-11-06] MEDS: MIRTAZAPINE 15 MG TAB PO SCH (20:02)
[2018-11-06] MEDS: ARIPiprazole 10 MG TAB PO SCH (20:03)
[2018-11-07 06:08] VITALS: BP 111/64
[2018-11-07 18:01] VITALS: BP 100/60
[2018-11-07] MEDS: RAMELTEON 8 MG TAB (ROZEREM) PO SCH (19:54)
[2018-11-07] MEDS: ARIPiprazole 10 MG TAB PO SCH (19:54)
[2018-11-07] MEDS: MIRTAZAPINE 15 MG TAB PO SCH (19:55)
[2018-11-08 06:00] VITALS: BP 111/58
[2018-11-08] MEDS ORDERED: MELA3TAB PO (11:37)
[2018-11-08] MEDS ORDERED: ARIP1TAB PO (11:37)
[2018-11-08] MEDS ORDERED: TRAZO50TA PO (11:37)
[2018-11-08] MEDS ORDERED: HYDRO50TAB PO (11:37)
[2018-11-08] MEDS ORDERED: MIRT15TA3 PO (11:37)
--- NOTE | 2018-11-08 19:26 | MHDSPDOC ---
[facility] Discharge Summary Discharge Summary DATE OF ADMISSION: Nov 02, 2018 at 12:28 DATE OF DISCHARGE: Nov 08, 2018 at 12:30 DISCHARGE DIAGNOSES: 1. Other specified depressive disorder 2. SHANNAN. 3. Adjustment disorder with anxious/depressed mood. REASON FOR ADMISSION: CHIEF COMPLAINT: SI with thoughts of driving car off bridge into [place] or jumping off bridge into river. HISTORY: according to ED report: "Pt. reports he has been feeling overwhelmed lately, is being med-boarded out of due to MH issues. He reports that he has been having negative thoughts for several days and those thoughts turned to SI this morning, reporting having thoughts of killing himself by [place] or jump[place]. He states he went to scheduled appt at today and told therapist of . Pt. states he has no hope in the future. He does state he is , has a good relationship with his who is currently in [place]( has visited fruequently). He states he is also from [place] and will return there after d/c. He reports three past suicide attempts/gestures. He denies MH history prior to joining the CONSULTANTS INVOLVED: None TREATMENT AND PROGRESS ON THE UNIT : The patient was pleasant and cooperative. He said he had become overwhelmed because he had several appointments to attend and this made him feel frustrated because he was having problems coordinating or s appointments and his daily activities. He says he feels misunderstood in the [employer]. He is aware of the cultural barrier. He misses the sun, the food and he has financial problems. He says he did pretty well in [place] in [place] but when he came back he had to face reality once again. He is being med boarded and he plans to return to [place]. He had a good response to medications while he was at [facility]. He didn't develop adverse reactions. HOSPITAL COURSE: As above DISCHARGE ASSESSMENT: Patient was not suicidal, not homicidal and not psychotic at the time of his discharge MENTAL STATUS EXAMINATION ON DISCHARGE: Patient is a 33-year old male, who is alert, cooperative, dressed in hospital clothes. Speech: Is normal in rate, tone and volume. Language skills are good. Thought processes including: intact, linear and coherent. Thought content: focused on being discharged, he is goal orientated, he wants it out of the . Denies SI/HI, thought delusions Description of abnormal or psychotic thoughts: Denies AV hallucinations, having suicidal/homicidal thoughts. Denies AV hallucinations Judgment: Improving Insight: Improving Orientation: x 3 Recent and remote memory: intact Attention span and concentration: good. Language: normal. Fund of knowledge: average. Mood: brighter, euthymic. Affect: congruent with mood. DIAGNOSES: 1. Other specified depressive disorder 2. SHANNAN. 3. Adjustment disorder with anxious/depressed mood. MEDICATIONS ON DISCHARGE: Scheduled Aripiprazole (Aripiprazole) 10 Mg Tab, 10 MG PO QHS for mood, #7 Escitalopram Oxalate (Escitalopram Oxalate) 10 Mg Tab, 10 MG PO DAILY for mood, #10 Melatonin (Melatonin) 3 Mg Tab, 3 MG PO QHS for insomnia, #7 Mirtazapine (Mirtazapine) 15 Mg Tab, 15 MG PO QHS for insomnia, #7 Scheduled PRN Hydroxyzine HCl (Hydroxyzine HCl) 50 Mg Tab, 50 MG PO Q6HP PRN for ANXIETY/AGITATION, #30 Trazodone HCl (Trazodone HCl) 50 Mg Tab, 50 MG PO QHSP PRN for INSOMNIA, #10 PLAN/FOLLOWUP ARRANGEMENTS: Follow Up Care Education Label * Medical * Medical Follow Up [facility]: * Established With This Provider Yes * Address of Clinic or Practice [address] * * Additional information Pt is established with [facility] and they will provide his follow up care. SEE JACKY LITTLE ([facility] NURSE HOG SCALDER) [phone]. Follow Up Care Education Label * Mental Health Appt 1 * Mental Health [facility] * Established With This Provider Yes * Additional information Pt is established with [facility] and they will provide his follow up care. The amount of time spent in the coordination of care for this patient was approximately 30 minutes. Vital Signs/I&Os Vital Signs Date Time Temp Pulse Resp B/P (MAP) Pulse Ox O2 Delivery O2 Flow Rate FiO2 11/08/18 06:00 97.8 58 14 111/58 (82) 98 Medications Scheduled Aripiprazole (Aripiprazole) 10 Mg Tab, 10 MG PO QHS for mood, #7 Escitalopram Oxalate (Escitalopram Oxalate) 10 Mg Tab, 10 MG PO DAILY for mood, #10 Melatonin (Melatonin) 3 Mg Tab, 3 MG PO QHS for insomnia, #7 Mirtazapine (Mirtazapine) 15 Mg Tab, 15 MG PO QHS for insomnia, #7 Scheduled PRN Hydroxyzine HCl (Hydroxyzine HCl) 50 Mg Tab, 50 MG PO Q6HP PRN for ANXIETY/AGITATION, #30 Trazodone HCl (Trazodone HCl) 50 Mg Tab, 50 MG PO QHSP PRN for INSOMNIA, #10 Allergies Coded Allergies: No Known Allergies (Unverified , 06/23/18) BEVERLY CABALLERO MD Nov 08, 2018 19:24
== END 2018-11-08 12:30 | disposition home or self-care (01) | DRG 881 ==
LOC: M ED 10:21 → M ED INP 12:28 → MERGE 12:28 → M PSY 14:00
PROVIDERS: ADMIT Psychiatry & Neurology Psychiatry; ATTEND Psychiatry & Neurology Psychiatry
DX: F32.9 Major depressive disorder, single episode, unspecified (principal); R45.851 Suicidal ideations; F41.1 Generalized anxiety disorder; F43.23 Adjustment disorder with mixed anxiety and depressed mood; Z79.899 Other long term (current) drug therapy; G47.00 Insomnia, unspecified; M54.5 Low back pain